=== PATIENT | female | born 1965 | race Two or more races ===

== ENCOUNTER 2020-10-30 23:45 | Outpatient (CLI) | payer OTHER | END 2020-10-30 23:48 | disposition home or self-care (01) | LOC: PPH VACUNA 23:45 | DX: Z23 Encounter for immunization (principal) ==

== ENCOUNTER → 2021-05-22 09:00 | Outpatient (CLI) | payer OTHER | END | disposition home or self-care (01) | LOC: PPH VACUNA 09:00 | PROVIDERS: ATTEND Emergency Medicine Pediatric Emergency Medicine | DX: Z23 Encounter for immunization (principal) ==